=== PATIENT | male | born 1940 | race Caucasian/White ===

== ENCOUNTER 2020-09-12 07:08 | Emergency (ER) | payer MEDICARE, OTHER, SELFPAY ==
[2020-09-12 07:10] VITALS: BP 144/74; PULSE 62; RESP 16; TEMP 36.6; O2SAT 99; BMI 19.6
--- NOTE | 2020-09-12 07:19 | ED.GENADULT ---
HPI - General Adult General Chief complaint: Urogenital-Male Stated complaint: unable to urinate after ablasion yesterday Time Seen by Provider: 09/12/20 07:13 History of Present Illness HPI narrative: Patient is a 80-year-old male who yesterday underwent a ablation secondary to atrial fibrillation. The access point was in the right groin. Since about noon yesterday he has had decreased urine output and increase in lower abdominal discomfort. He has never had an issue with urinary retention in the past but states he has had some prostate issues in the past. No fevers. No vomiting. Related Data Previous Rx's Medication Instructions Recorded tamsulosin 0.4 mg capsule (Flomax) 0.4 mg PO DAILY #30 cap 09/12/20 Allergies Allergy/AdvReac Type Severity Reaction Status Date / Time No Known Drug Allergies Allergy Verified 09/12/20 07:42 Review of Systems Constitutional Constitutional: Denies fever(s) Cardiovascular Cardiovascular: Reports system reviewed and no additional complaints, except as documented Respiratory Respiratory: Reports system reviewed and no additional complaints, except as documented Gastrointestinal Gastrointestinal: Reports abdominal pain Genitourinary Genitourinary: Reports difficulty urinating Musculoskeletal Musculoskeletal: Reports system reviewed and no additional complaints, except as documented Integumentary/Breasts Skin/Breast: Reports system reviewed and no additional complaints, except as documented Neurologic Neurologic: Reports system reviewed and no additional complaints, except as documented Hematologic/Lymphatic On Anticoagulants: Yes Patient History Medical History Atrial fibrillation Social History lives independently: Yes Smoking Status: Never smoker Exam Initial Vital Signs Initial Vital Signs: Vital Signs Temperature 97.8 F 09/12/20 07:10 Pulse Rate 62 09/12/20 07:10 Respiratory Rate 16 09/12/20 07:10 Blood Pressure 144/74 H 09/12/20 07:10 Pulse Oximetry 99 09/12/20 07:10 Const General: cooperative and healthy appearing [facility] Head: normal to inspection and normocephalic Resp Auscultation: clear to auscultation bilaterally Cardio Rate: regular rate Rhythm: regular rhythm GI Palpation: tender (Lower abdomen) General: bladder abnormal (Some discomfort over the area with palpation) Skin General: no rashes or lesions noted Neuro General: patient alert, patient awake and patient oriented x3 Extrem General: capillary refill normal Psych Appearance: grossly normal Course Vital Signs Vital signs: Vital Signs - 8 hr 09/12/ 07:10 Temperature 97.8 F Pulse Rate 62 Respiratory Rate 16 Blood Pressure 144/74 H Pulse Oximetry 99 Medical Decision Making MDM Narrative Medical decision making narrative: No signs of infection. Had approximately 1 L of urine after Mak catheter was placed. Patient reports improvement of symptoms. He has a urologist already established and will contact his urologist for follow-up. Had a discussion about leaving the catheter in versus having it removed in he opted to keep the catheter in place. He was given instructions on care of the catheter. Is given return precautions. He expressed understanding and agreement. Discharge Plan Departure Patient Disposition: Home Clinical Impression: Acute urinary retention Instructions: How to Care for Your Mak Catheter -- Male, DI for Urinary Retention in Men Activity Restrictions/Additional Instructions: I recommend that when the office is open today you contact your urologist to schedule a follow-up appointment. Start taking the tamsulosin/Flomax as directed. This prescription was electronically sent to [facility]. Return to the emergency department for any new or worsening symptoms Prescriptions: New tamsulosin [Flomax] 0.4 mg capsule 0.4 mg PO DAILY Qty: 30 RF: 0 Referrals: Cristel Gallagher MD [Physician] -
[2020-09-12 07:45] VITALS: BP 140/68; PULSE 59; RESP 18; O2SAT 100
== END 2020-09-12 08:27 | disposition home or self-care (01) ==
PROVIDERS: Emergency Provider Emergency Medicine
DX: R33.9 Retention of urine, unspecified (principal)
CPT/HCPCS: 51702; 51798; 81003; 99283